=== PATIENT | male | born 1985 | race Two or more races ===

== ENCOUNTER 2017-04-26 15:45 | Emergency (ER) | payer MEDICAID ==
[~2017-04-26] VITALS: Ht 170.2 cm; Wt 111.1 kg
[2017-04-26 15:46] VITALS: BP 143/90
[2017-04-26 16:20] LABS: Basophils # (auto) 0 uL; Basophils % (auto) 0.6 % (0.0-2.0); Eosinophils # (auto) 0.2 uL; Eosinophils % (auto) 3.1 % (0.0-7.0); Hematocrit 44.7 % (41.0-53.0); Hemoglobin 15.3 g/dL (13.5-17.5); Lymphocytes % (auto) 27.2 % (10.0-50.0); Mean Corpuscular Hemoglobin 30.1 pg (28.0-32.0); Mean Corpuscular Hgb Conc. 34.2 g/dL (32.0-36.0); Mean Corpuscular Volume 88.1 fL (80.0-100.0); Mean Platelet Volume 7.2 fL (6.9-10.8); Monocytes # (auto) 0.6 uL; Monocytes % (auto) 7.7 % (0.0-12.0); Neutrophils # (auto) 4.5 uL; Neutrophils % (auto) 61.4 % (37.0-80.0); Nucleated Red Blood Cells % 0.1 %; Platelet Count (auto) 259 10^3/uL (140-450); Red Cell Distribution Width 13.4 % (11.8-14.3); White Blood Cell 7.3 10^3/uL (4.4-10.8)
[2017-04-26 16:39] LABS: Albumin 3.9 g/dL (3.4-5.0); Alkaline Phosphatase 87 U/L (45-117); Anion Gap 7 (5-15); Aspartate Aminotransferase 21 U/L (15-37); BUN/Creatinine Ratio 11.7; Bilirubin, Total 0.4 mg/dL (0.2-1.0); Blood Urea Nitrogen 15 mg/dL (7-18); Calcium 8.6 mg/dL (8.5-10.1); Carbon Dioxide 27 mmol/L (21-32); Chloride 105 mmol/L (98-107); GFR African American 83 mL/min; GFR Non-African American 69 mL/min; Glucose 60 mg/dL (74-106); Magnesium 2.5 mg/dL (1.6-2.6); Potassium 4.3 mmol/L (3.5-5.1); Sodium 139 mmol/L (136-145); Total Protein 8.1 g/dL (6.4-8.2)
== END 2017-04-27 03:05 | disposition left against medical advice (07) ==
LOC: ER 15:48
DX: R07.89 Other chest pain (principal); R06.02 Shortness of breath; Z53.21 Procedure and treatment not carried out due to patient leaving prior to being seen by health care provider
CPT/HCPCS: 36415; 71020; 80053; 83735; 84484; 85025; 93005

== ENCOUNTER 2018-02-10 12:23 | Emergency (ER) | payer MEDICAID ==
[~2018-02-10] VITALS: Ht 170.2 cm; Wt 108.9 kg
[2018-02-10] MEDS ORDERED: NITROGLYCERIN 0.4 MG SL TAB SL ONE (13:15)
[2018-02-10] MEDS ORDERED: ASPirin 81 mg TAB PO ONE (13:15)
[2018-02-10 14:21] LABS: Basophils # (auto) 0 uL; Basophils % (auto) 0.7 % (0.0-2.0); Eosinophils # (auto) 0.2 uL; Eosinophils % (auto) 3.6 % (0.0-7.0); Hematocrit 48.2 % (41.0-53.0); Hemoglobin 15.9 g/dL (13.5-17.5); Lymphocytes # (auto) 1.9 uL; Lymphocytes % (auto) 30.2 % (10.0-50.0); Mean Corpuscular Hemoglobin 28.8 pg (28.0-32.0); Mean Corpuscular Volume 87.3 fL (80.0-100.0); Monocytes # (auto) 0.4 uL; Monocytes % (auto) 6.8 % (0.0-12.0); Neutrophils # (auto) 3.7 uL; Neutrophils % (auto) 58.7 % (37.0-80.0); Nucleated Red Blood Cells % 0.1 %; Platelet Count (auto) 264 10^3/uL (140-450); Red Blood Cells 5.52 10^6/uL (4.5-5.90); Red Cell Distribution Width 13.5 % (11.8-14.3); White Blood Cell 6.3 10^3/uL (4.4-10.8)
[2018-02-10 14:38] LABS: Alanine Aminotransferase 39 U/L (16-61); Albumin 3.9 g/dL (3.4-5.0); Alkaline Phosphatase 80 U/L (45-117); Anion Gap 8 (5-15); Aspartate Aminotransferase 17 U/L (15-37); BUN/Creatinine Ratio 9.9; Bilirubin, Total 0.7 mg/dL (0.2-1.0); Blood Urea Nitrogen 10 mg/dL (7-18); Calcium 8.5 mg/dL (8.5-10.1); Carbon Dioxide 28 mmol/L (21-32); Chloride 103 mmol/L (98-107); GFR African American 109 mL/min; GFR Non-African American 90 mL/min; Glucose 94 mg/dL (74-106); Potassium 4.3 mmol/L (3.5-5.1); Sodium 139 mmol/L (136-145); Total Protein 7.7 g/dL (6.4-8.2)
[2018-02-10 16:16] VITALS: BP 126/73
[2018-02-10 16:21] LABS: Urine Bacteria NONE SEEN /hpf (None Seen); Urine Blood Negative /uL (Negative); Urine Mucus FEW (None Seen); Urine Specific Gravity 1.023 (1.001-1.035); Urine WBC <1 /hpf (0 - 3)
== END 2018-02-10 16:31 | disposition home or self-care (01) ==
LOC: ER 12:23
DX: R07.89 Other chest pain (principal); F17.210 Nicotine dependence, cigarettes, uncomplicated; F12.10 Cannabis abuse, uncomplicated; Z88.0 Allergy status to penicillin
CPT/HCPCS: 36415; 71046; 80053; 81001; 84484; 85025; 93005

== ENCOUNTER 2019-05-05 22:47 | Inpatient (IN) | payer MEDICAID ==
[~2019-05-05] VITALS: Ht 165.1 cm; Wt 117.1 kg
[2019-05-05 23:15] LABS: Basophils # (auto) 0.1 uL; Basophils % (auto) 0.8 % (0.0-2.0); Eosinophils # (auto) 0.5 uL; Eosinophils % (auto) 5.9 % (0.0-7.0); Hematocrit 44.9 % (41.0-53.0); Hemoglobin 15.2 g/dL (13.5-17.5); Lymphocytes # (auto) 2.7 uL; Lymphocytes % (auto) 33.1 % (10.0-50.0); Mean Corpuscular Hemoglobin 29.7 pg (28.0-32.0); Mean Corpuscular Hgb Conc. 33.9 g/dL (32.0-36.0); Mean Corpuscular Volume 87.7 fL (80.0-100.0); Monocytes # (auto) 0.8 uL; Monocytes % (auto) 9.3 % (0.0-12.0); Neutrophils # (auto) 4.1 uL; Neutrophils % (auto) 50.9 % (37.0-80.0); Platelet Count (auto) 257 10^3/uL (140-450); Red Blood Cells 5.12 10^6/uL (4.5-5.90); Red Cell Distribution Width 13.5 % (11.8-14.3); White Blood Cell 8.1 10^3/uL (4.4-10.8)
[2019-05-05] MEDS ORDERED: SODIUM CHLORIDE 0.9% 500 ML IV ONE (23:15)
[2019-05-05] MEDS ORDERED: DILTIAZEM HCL 25 MG/5 ML VIAL IV ONE (23:15)
[2019-05-05 23:36] LABS: Alanine Aminotransferase 84 U/L (16-61); Albumin 3.9 g/dL (3.4-5.0); Anion Gap 8 (5-15); Aspartate Aminotransferase 25 U/L (15-37); BUN/Creatinine Ratio 13.5; Blood Urea Nitrogen 14 mg/dL (7-18); Calcium 8.3 mg/dL (8.5-10.1); Carbon Dioxide 26 mmol/L (21-32); Chloride 104 mmol/L (98-107); GFR African American 105 mL/min; GFR Non-African American 86 mL/min; Glucose 129 mg/dL (74-106); Magnesium 2.1 mg/dL (1.6-2.6); Potassium 3.9 mmol/L (3.5-5.1); Sodium 138 mmol/L (136-145)
[2019-05-05 23:40] LABS: Alkaline Phosphatase 95 U/L (45-117); Bilirubin, Total 0.3 mg/dL (0.2-1.0); Total Protein 7.8 g/dL (6.4-8.2)
[2019-05-05] MEDS ORDERED: DILTIAZEM HCL 60 MG TAB PO ONE (23:45)
[2019-05-05 23:55] LABS: Urine WBC None Seen /hpf (0 - 3)
[2019-05-06] LABS: Urine Bacteria NONE SEEN /hpf (None Seen); Urine Blood Negative /uL (Negative)
[2019-05-06 00:15] LABS: Alcohol, Urine < 3.0 mg/dL (0-5); Barbiturate Scree,Urine NEGATIVE (NEGATIVE); Benzodiazephine Screen, Urine NEGATIVE (NEGATIVE); Cannabinoid Screen, Urine NEGATIVE (NEGATIVE); Cocaine Screen, Urine NEGATIVE (NEGATIVE); Opiate Scree,Urine NEGATIVE (NEGATIVE); Phencyclidine Screen, Urine NEGATIVE (NEGATIVE)
[2019-05-06 00:19] LABS: Amphetamine Screen, Urine NEGATIVE (NEGATIVE)
[2019-05-06] MEDS ORDERED: DILTIAZEM HCL 25 MG/5 ML VIAL IV ONE (01:00)
[2019-05-06] MEDS ORDERED: IBUPROFEN 600 MG TAB PO ONE (01:15)
[2019-05-06] MEDS ORDERED: MORPHINE SULF INJ 2 MG/ML SYRINGE 1ML IV PRN (02:45)
[2019-05-06] MEDS ORDERED: TEMAZEPAM 15 MG CAP PO PRN (02:45)
[2019-05-06] MEDS ORDERED: ONDANSETRON HCL 4 MG/2 ML VIAL IV PRN (02:45)
[2019-05-06] MEDS ORDERED: ACETAMINOPHEN 325 MG TAB PO PRN (02:45)
[2019-05-06] MEDS ORDERED: NITROGLYCERIN 0.4 MG SL TAB SL PRN (02:45)
[2019-05-06 03:01] LABS: Cholesterol 187 mg/dL (< 200)
[2019-05-06 03:03] LABS: HDL Cholesterol 37 mg/dL (40-59); LDL Cholesterol 114 mg/dL (< 100); Triglycerides 293 mg/dL (< 150)
--- NOTE | 2019-05-06 03:55 | NUR ---
Telemetry admit from JONEL[facility] HOLLEY admitted to Telemetry unit after SBAR received. Patient oriented to Trisha Marti primary RN, unit, room, bed, and unit policies regarding patient care and visiting hours. Patient now on continuous telemetry monitoring, tele box # [id number] and telemetry reading on arrival to unit is Af[facility]. Patient placed on bedside oxygen, weighed by bedscale and encouraged to call if they need something. All questions and concerns addressed, patient verbalized understanding.
[2019-05-06 05:00] VITALS: BP 113/68
[2019-05-06 08:00] VITALS: BP 116/70
--- NOTE | 2019-05-06 08:00 | NUR ---
ASSESSMENT NOTE PATIENT IS ALERT ORIENTED X4, RESTING IN BED COMFORTABLY, NO DISTRESS NOTED, DENIES CHEST PAIN 0/10, SELF REPOSITION, ABLE TO IDENTIFY HIS NEEDS, AMBULATE NEEDED, CALL LIGHT WITHIN REACH.
[2019-05-06 09:00] VITALS: BP 111/72
--- NOTE | 2019-05-06 09:30 | NUR ---
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
[2019-05-06] MEDS: ASPirin 81 mg TAB PO SCH (09:35)
[2019-05-06] MEDS: FAMOTIDINE 20 MG TAB PO SCH ×2 (09:35→21:30)
[2019-05-06 13:28] VITALS: BP 131/80
--- NOTE | 2019-05-06 16:15 | NUR ---
DR MILLER IS HERE REVIEWING PATIENT'S FILE
[2019-05-06 17:28] VITALS: BP 133/79
--- NOTE | 2019-05-06 17:30 | NUR ---
ALL PATIENTS FAMILY AT BED SIDE PT STABLE, NO DISTRESS NOTED, CONTINUE MONITOR
--- NOTE | 2019-05-06 19:24 | NUR ---
Opening Shift Note Assumed care of patient, awake and alert x 4. No S/S of distress/SOB or pain. Bed is in lowest position and locked. Call light within reach. Board updated. Tele box number matches monitor and leads are in correct placement. Instructed on POC and to call for assist PRN, will continue to monitor for changes Q1hr and PRN.
--- NOTE | 2019-05-06 21:18 | NUR ---
Patient states they want to leave the floor Against Medical Advice (AMA) to go outside. Patient encouraged to stay on floor. Patient advised of the risks and benefits of leaving AMA. Patient verbalized understanding and signed required AMA form. Patient agreed to return within 30 minutes.
--- NOTE | 2019-05-06 21:26 | NUR ---
Patient has returned to floor and is back in his room. Tele box monitor is reading patient's heart rhythm.
[2019-05-06 21:30] VITALS: BP 135/84
[2019-05-06] MEDS: PROPRANOLOL HCL 20 MG TAB PO SCH (21:30)
[2019-05-06] MEDS ORDERED: ATORVASTATIN 20 MG TAB PO SCH (22:00)
[2019-05-07 05:00] VITALS: BP 122/71
[2019-05-07 06:32] LABS: Basophils # (auto) 0.1 uL; Basophils % (auto) 1.2 % (0.0-2.0); Eosinophils # (auto) 0.2 uL; Eosinophils % (auto) 4.3 % (0.0-7.0); Hematocrit 42.6 % (41.0-53.0); Hemoglobin 14.2 g/dL (13.5-17.5); Lymphocytes # (auto) 1.7 uL; Lymphocytes % (auto) 29.4 % (10.0-50.0); Mean Corpuscular Hemoglobin 29.5 pg (28.0-32.0); Mean Corpuscular Hgb Conc. 33.5 g/dL (32.0-36.0); Mean Corpuscular Volume 88.2 fL (80.0-100.0); Monocytes # (auto) 0.5 uL; Monocytes % (auto) 8.2 % (0.0-12.0); Neutrophils # (auto) 3.2 uL; Neutrophils % (auto) 56.9 % (37.0-80.0); Platelet Count (auto) 235 10^3/uL (140-450); Red Blood Cells 4.83 10^6/uL (4.5-5.90); Red Cell Distribution Width 13.4 % (11.8-14.3); White Blood Cell 5.7 10^3/uL (4.4-10.8)
[2019-05-07 07:20] LABS: Albumin 3.5 g/dL (3.4-5.0); Magnesium 2.3 mg/dL (1.6-2.6)
[2019-05-07 07:23] LABS: BUN/Creatinine Ratio 17.8; Bilirubin, Total 0.3 mg/dL (0.2-1.0); Phosphorus 3.6 mg/dL (2.5-4.90); Total Protein 6.9 g/dL (6.4-8.2)
[2019-05-07 09:00] VITALS: BP 140/83
[2019-05-07] MEDS: ASPirin 81 mg TAB PO SCH (10:54)
[2019-05-07] MEDS: FAMOTIDINE 20 MG TAB PO SCH (10:55)
[2019-05-07] MEDS: PROPRANOLOL HCL 20 MG TAB PO SCH (10:55)
--- NOTE | 2019-05-07 11:10 | NUR ---
Opening Shift Note Assumed care of patient, awake and alert laying down in bed. Patient is on room air with even and unlabored respirations. No S/S of distress/SOB. Patient declined pain at this time. Patient instructed on safety and fall precautions. Bed is in lowest position, wheels are locked, side rails up x2, and call light is within reach. Instructed on POC and to call for assist PRN, will continue to monitor for changes Q1hr and PRN.
--- NOTE | 2019-05-07 12:00 | NUR ---
Rounds Patient awake and alert. No S/S of distress/SOB or pain. Patient up walking around nurses station even and steady gait. Patient tolerating well. Will continue to monitor changes q1hr and PRN.
[2019-05-07 13:00] VITALS: BP 137/79
--- NOTE | 2019-05-07 15:59 | NUR ---
SPOKE WITH DR. ECKERT OVER THE PHONE. DR. ECKERT CALLED, STATED WILL BE D/C PATIENT HOME. WILL SEND RX'S ELECTRONICALLY TO [facility]. PATIENT REQUESTING DR. CANCINO FOR WORK. PER DR. SALINAS TO WRITE NOTE FOR HOSPITAL STAY AND FOR PATIENT TO RETURN TO WORK ON SATURDAY.
[2019-05-07] MEDS ORDERED: METO25TA5 PO (16:04)
[2019-05-07] MEDS ORDERED: METF-370 PO (16:04)
[2019-05-07] MEDS ORDERED: ASPI81CH59 PO (16:04)
[2019-05-07] MEDS ORDERED: ATOR20TA50 PO (16:04)
[2019-05-07] MEDS ORDERED: FAM20T PO (16:04)
[2019-05-07] MEDS ORDERED: CALCTAB25 PO (16:16)
[2019-05-07 17:25] VITALS: BP 140/85
--- NOTE | 2019-05-07 18:15 | NUR ---
Patient Discharged Discharge instructions given as ordered. Encourage to follow up with PMD and set builder as instructed. All questions and concerns addressed. Patient verbalized understanding. Medication reconciliation form completed and copy given to patient. IV removed with catheter intact, pressure dressing applied, patient tolerated well. Telemetry unit returned to ICU. Patient declined wheelchair and ambulating with steady gait to elevator. Patient with all personal belongings, accompanied by staff and family member. No S/S of distress/SOB or pain noted at time of departure.
== END 2019-05-07 18:15 | disposition home or self-care (01) | DRG 201 ==
LOC: ER 22:47 → TELE 22:48 → TELE-CENTR 05-06 03:53
PROVIDERS: ADMIT Nurse Practitioner; ATTEND Hospitalist
DX: I48.0 Paroxysmal atrial fibrillation (principal); E66.01 Morbid (severe) obesity due to excess calories; R73.03 Prediabetes; F12.90 Cannabis use, unspecified, uncomplicated; I10 Essential (primary) hypertension; E78.5 Hyperlipidemia, unspecified; Z88.0 Allergy status to penicillin; Z90.89 Acquired absence of other organs; Z68.43 Body mass index [BMI] 50.0-59.9, adult; Z82.3 Family history of stroke
CPT/HCPCS: 36415; 71045; 80053; 80061; 80307; 81001; 83036; 83735; 83880; 84100; 84443; 84484; 85025; 93005; 93306; 94761; 96361; 96374; 96376; G0378